=== PATIENT | male | born 1960 | race Caucasian/White ===

== ENCOUNTER 2018-10-30 21:11 | Emergency (ER) | payer OTHER ==
[~2018-10-30] VITALS: Ht 160 cm; Wt 50.3 kg
[~2018-10-30 21:11] MED LIST: IBUP-1542 PO
[2018-10-30 21:13] VITALS: Ht 160 cm; Wt 50.3 kg
--- NOTE | 2018-10-30 22:35 | ERD ---
ER Documentation Chief Complaint Chief Complaint HEADACHE WITH GEN BODY PAIN, DENIES SO, DENIES CP X1DAY HPI 58-year-old male presents with complaint of headache with generalized body pain. States that the pain starts in his legs and goes up to his head. Patient denies any nausea, vomiting, diarrhea, fevers, chest pain, shortness of breath, leg edema, leg erythema, hemoptysis, history of malignancy, history of recent surgeries, dyspnea. ROS All systems reviewed and are negative except as per history of present illness. Medications Home Meds Active Scripts Ibuprofen* (Motrin*) 600 Mg Tab, 600 MG PO Q6, #30 TAB Prov:JUAN R PAUL 10/30/18 Allergies Allergies: Coded Allergies: No Known Allergy (Unverified , 10/31/18) PMhx/Soc History of Surgery: No Anesthesia Reaction: No Hx Neurological Disorder: Yes (Gradual memory loss) Hx Respiratory Disorders: No Hx Cardiac Disorders: No Hx Psychiatric Problems: No Hx Miscellaneous Medical Probl: No Hx Alcohol Use: No Hx Substance Use: No Hx Tobacco Use: No Smoking Status: Never smoker FmHx Family History: No diabetes, No coronary disease, No other Physical Exam Vitals Physical Exam Const: No acute distress Head: Atraumatic Eyes: Normal Conjunctiva ENT: Normal External Ears, Nose and Mouth. Neck: Full range of motion. No meningismus. Resp: Clear to auscultation bilaterally Cardio: Regular rate and rhythm, no murmurs Abd: Soft, non tender, non distended. Normal bowel sounds Skin: No petechiae or rashes Back: No midline or flank tenderness Ext: No cyanosis, or edema Neur: Awake and alert Psych: Normal Mood and Affect Neuro: M/S: Alert and oriented Face: EOMI, face and pharynx with normal sensation and function Motor: Normal strength throughout Sensation: Normal sensation throughout Speech: Normal Cerebel: Normal coordination Normal gait Normal finger to nose DTR: 2+ and symmetric upper/lower extremities Results 24 hrs Laboratory Tests Test 10/30/18 22:51 White Blood Count 5.8 10^3/ul Red Blood Count 4.56 10^6/ul Hemoglobin 14.5 g/dl Hematocrit 44.1 % Mean Corpuscular Volume 96.7 fl Mean Corpuscular Hemoglobin 31.8 pg Mean Corpuscular Hemoglobin Concent 32.9 g/dl Red Cell Distribution Width 13.2 % Platelet Count 203 10^3/UL Mean Platelet Volume 9.7 fl Immature Granulocytes % 0.200 % Neutrophils % 54.4 % Lymphocytes % 32.9 % Monocytes % 9.8 % Eosinophils % 2.2 % Basophils % 0.5 % Nucleated Red Blood Cells % 0.0 /100WBC Immature Granulocytes # 0.010 10^3/ul Neutrophils # 3.2 10^3/ul Lymphocytes # 1.9 10^3/ul Monocytes # 0.6 10^3/ul Eosinophils # 0.1 10^3/ul Basophils # 0.0 10^3/ul Nucleated Red Blood Cells # 0.0 10^3/ul Urine Color YELLOW Urine Clarity SLIGHTLY CLOUDY Urine pH 6.0 Urine Specific Lenora 1.023 Urine Ketones NEGATIVE mg/dL Urine Nitrite NEGATIVE mg/dL Urine Bilirubin NEGATIVE mg/dL Urine Urobilinogen 1+ mg/dL Urine Leukocyte Esterase TRACE Juan Ramon/ul Urine Microscopic RBC 1 /HPF Urine Microscopic WBC 4 /HPF Urine Bacteria FEW /HPF Urine Mucus FEW /HPF Urine Hemoglobin NEGATIVE mg/dL Urine Glucose NEGATIVE mg/dL Urine Total Protein NEGATIVE mg/dl Sodium Level 142 mmol/L Potassium Level 3.8 mmol/L Chloride Level 103 mmol/L Carbon Dioxide Level 34 mmol/L Anion Gap 5 Blood Urea Nitrogen 15 mg/dl Creatinine 1.02 mg/dl Est Glomerular Filtrat Rate mL/min > 60 mL/min Glucose Level 77 mg/dl Calcium Level 9.8 mg/dl Total Bilirubin 0.5 mg/dl Direct Bilirubin 0.00 mg/dl Indirect Bilirubin 0.5 mg/dl Aspartate Amino Transf (AST/SGOT) 25 IU/L Alanine Aminotransferase (ALT/SGPT) 23 IU/L Alkaline Phosphatase 55 IU/L Creatine Kinase 111 IU/L Troponin I < 0.012 ng/ml Total Protein 7.4 g/dl Albumin 4.5 g/dl Globulin 2.90 g/dl Albumin/Globulin Ratio 1.55 Current Medications Medications Dose Sig/Leobardo Start Time Status Last (Trade) Ordered Route PRN Stop Time Admin Dose Reason Admin Ketorolac 60 mg ONCE STAT 10/30/18 DC 10/31/18 Tromethamine IM 23:49 10/30/18 00:29 (Toradol) 23:50 Procedures/MDM EKG: Rate/Rhythm: Normal Sinus Rhythm QRS, ST, T-waves: No changes consistent w/ acute ischemia Impression: No evidence of ischemia or arrhythmia DIAGNOSTIC IMAGING REPORT Patient: BESSY LIMON : 1960 Age: 58 Sex: M MR #: [id number] DOS: 10/30/182230 Ordering MD: JUAN R PAUL Location: [facility] Room/Bed: PROCEDURE: CT Brain without contrast. CLINICAL INDICATION: MADRIGAL TECHNIQUE: A CT of the brain was performed from the skull base through the vertex without IV contrast. Multiplanar reformatted images were made. Images were reviewed on a PACS workstation. The CTDIvol is 38.8 mGy and the DLP is 634 mGycm. DICOM images are available. One or more of the following dose reduction techniques were utilized: 1.) Automated exposure control 2.) Adjustment of the mA +/- kV according to patient's size 3.) Use of iterative reconstruction technique. COMPARISON: None FINDINGS: Brain: No acute intracranial findings. No mass, hemorrhage, or evidence of acute infarct. The ventricles are normal in size and configuration. Bones: The skull base and calvarium are normal in appearance. Orbits: Unremarkable Soft tissues: Unremarkable Paranasal sinuses: Visualized sinuses are clear. IMPRESSION: No acute intracranial findings. RPTAT:HCLE Physician [place] Date Time Electronically viewed and signed by Physician [place] on 10/30/2018 23:39 cE/ CC: JUAN R PAUL [phone] DIAGNOSTIC IMAGING REPORT Patient: BESSY LIMON : 1960 Age: 58 Sex: M MR #: [id number] DOS: 10/30/182227 Ordering MD: JUAN R PAUL Location: [facility] Room/Bed: PROCEDURE: XR Chest. CLINICAL INDICATION: generalized pain TECHNIQUE: Single frontal view of the chest COMPARISON: None FINDINGS: Hyperexpanded lungs are noted, which can be seen with COPD. Coarse interstitial lung markings are present, likely chronic. No focal consolidation identified. Tortuous aorta is noted with atherosclerotic calcifications. Cardiac and mediastinal contours otherwise unremarkable. There is no pleural effusion or pneumothorax. Spinal degenerative changes noted. No acute bony abnormality identified. Remaining soft tissues unremarkable. IMPRESSION: Hyperexpanded lungs, which can be seen with COPD. Otherwise, no acute cardiac or pulmonary findings. RPTAT:HCLE jeffrey Crump, Physician Date Time Electronically viewed and signed by jeffrey Crump Physician on 10/30/2018 23:40 cE/ CC: JUAN R PAUL [id number] MDM: CT of the head was performed and results within normal limits. In addition patient had no neck rigidity or fevers. I have low suspicion for intracranial hemorrhage, elevated intracranial pressure, intracranial mass, aneurysm, meningitis, malignant hypertension, giant cell arteritis, carotid dissection, intracranial abscess, cerebral venous thrombosis, CO2 poisoning, or other emergent causes of headache based on patients history and exam. CXR, EKG, and labs were WNL. I have low suspicion for acute coronary syndrome, pulmonary embolism, aortic dissection, AAA, pneumothorax, esophageal rupture, pericarditis, myocarditis, or pneumonia based on EKG, imaging, labs, patient history and exam. Patient does not meet Wells criteria for D-Dimer testing. At this time, patient is stable for discharge and outpatient management. I have instructed the patient to follow-up with his/her primary care physician in 1 day. I have discussed with the patient the possibility of needing to see a specialist for further workup and imaging studies if symptoms persist. I have instructed the patient to promptly return to the ER for any new or worsening symptoms including but not limited to increased pain, fever, nausea, vomiting, weakness or LOC. The patient and/or family expressed understanding of and agreement with this plan. All questions were answered. Home care instructions were provided. Communication with patient throughout the ER course was performed using a stope miner . Patient gave verbal confirmation to the practitioner, through the stope miner, that they understood everything that was being said to them. DISCLAIMER: Inadvertent spelling and grammatical errors are likely due to EHR/dictation software use and do not reflect on the overall quality of patient care. Also, please note that the electronic time recorded on this note does not necessarily reflect the actual time of the patient encounter. Departure Diagnosis: Primary Impression: Headache Additional Impression: Generalized pain Condition: Stable JUAN R PAUL Oct 30, 2018 22:35
[2018-10-30] MEDS ORDERED: KETOROLAC 60 MG INJ IM STA (23:49)
[2018-10-31 00:32] VITALS: BP 110/56; PULSE 74; RESP 16
== END 2018-10-31 00:33 | disposition home or self-care (01) ==
LOC: FTE 21:11
DX: R51 Headache (principal); R07.89 Other chest pain
CPT/HCPCS: 36415; 70450; 71045; 80053; 81001; 82550; 84484; 85025; 87086; 93005; 96372; J1885; Z7502